=== PATIENT | female | born 1995 | race Caucasian/White ===

== ENCOUNTER 2022-05-27 12:05 | Observation (INO) | payer OTHER, SELFPAY ==
[2022-05-27] MEDS ORDERED: hydrALAZINE 20 MG/ML VIAL SLOW IVP PRN (13:16)
[2022-05-27 15:11] LABS: #Monocytes 0.2 10x3/uL (0.0-1.1); #Neutrophils 3.2 10x3/uL (1.5-8.4); %Basophils 0.2 % (0.0-2.0); %Eosinophils 0.2 % (0.0-6.0); %Lymphocytes 24.2 % (18.0-47.0); %Monocytes 3.4 % (0.0-10.0); %Neutrophils 71.5 % (40.0-75.0); Hemoglobin 6.8 g/dL (12.0-15.5); Mean Corpuscular HGB CONC 28.7 g/dL (32.0-36.0); Mean Corpuscular Hemoglobin 17.3 pg (27.0-33.0); Mean Corpuscular Volume 60.2 fl (81.6-98.3); Mean Platelet Volume 9.3 fl (7.4-10.4); Platelet Count 309 10x3/uL (150-450); RBC Distribution Width 21.2 % (11.5-14.5); Red Blood Cell (RBC) Count 3.94 10x6/uL (3.90-5.03); White Blood Cell (WBC) Count 4.4 10x3/uL (3.5-10.5)
[2022-05-27 15:27] LABS: ALT (SGPT) Less than 6 U/L (8-55); AST (SGOT) 12 U/L (5-34); Albumin 3.4 g/dL (3.5-5.0); Alkaline Phosphatase 133 U/L (40-110); Anion Gap 12 mmol/L (10-20); BUN (Urea Nitrogen) 6 mg/dL (7.0-18.7); Calc. Creatinine Clearance 0 mL/min (70-130); Calcium 8.6 mg/dL (7.8-10.44); Carbon Dioxide 20 mmol/L (22-29); Chloride 106 mmol/L (98-107); Estimated GFR 125; Globulin 3.9 g/dL (2.4-3.5); Glucose 107 mg/dL (70-105); Iron 24 ug/dL (50-170); Magnesium 1.9 mg/dL (1.6-2.6); Potassium 3.1 mmol/L (3.5-5.1); Protein, Total 7.3 g/dL (6.0-8.3); Sodium 135 mmol/L (136-145)
[2022-05-27 15:50] LABS: HBSAg Index 0.15 S/CO (0-0.99); Hep B Surf Ag Non-Reactive S/CO (NonReactive)
[2022-05-27] MEDS ORDERED: Iron, Sodium Ferric Gluconate 125 MG in Sodium Chloride 0.9% 100 ML IVPB SCH (16:00)
[2022-05-27 16:07] LABS: Syphilis Antibody Nonreactive (Nonreactive); Syphilis Antibody Index 0.04 S/CO (<1.00 Non-Reactive)
[2022-05-27 16:40] LABS: HIV (1/2) Antibody/Antigen Non-Reactive (NonReactive); HIV 1/2 INDEX 0.08 S/CO (<1.00)
[2022-05-27 17:02] LABS: Anisocytosis MODERATE=16-30 cells (100X) (0-5/hpf); Elliptocytes SLIGHT = 2-5 cells (100X) (0-1/hpf); Hypochromia SLIGHT = 6-15 cells (100X) (0-5/hpf); Microcytosis MODERATE=15-30 cells (100X) (0-5/hpf)
[2022-05-27 17:03] LABS: Platelet Morphology Comment Appears Adequate
[2022-05-27 17:06] LABS: Reflex for Review?? YES
[2022-05-27] MEDS ORDERED: Potassium Chloride 20 MEQ TAB PO SCH (17:15)
[2022-05-28 05:20] LABS: Hemoglobin 6.8 g/dL (12.0-15.5); Mean Corpuscular HGB CONC 29.4 g/dL (32.0-36.0); Mean Corpuscular Hemoglobin 18.1 pg (27.0-33.0); Mean Corpuscular Volume 61.6 fl (81.6-98.3); Mean Platelet Volume 9.2 fl (7.4-10.4); Platelet Count 270 10x3/uL (150-450); RBC Distribution Width 22.6 % (11.5-14.5); Red Blood Cell (RBC) Count 3.75 10x6/uL (3.90-5.03); White Blood Cell (WBC) Count 4.4 10x3/uL (3.5-10.5)
[2022-05-28 05:27] LABS: Anion Gap 11 mmol/L (10-20); BUN (Urea Nitrogen) 6 mg/dL (7.0-18.7); Calc. Creatinine Clearance 0 mL/min (70-130); Carbon Dioxide 20 mmol/L (22-29); Chloride 108 mmol/L (98-107); Estimated GFR 128; Glucose 85 mg/dL (70-105); Potassium 3.5 mmol/L (3.5-5.1); Sodium 135 mmol/L (136-145)
[2022-05-28 07:54] VITALS: BMI 28.4
[2022-05-28 08:28] LABS: SARS-CoV-2 NAA Rapid Test Not Detected (NotDetected)
[2022-05-28 09:47] LABS: Hep C IgG Ab Non-Reactive (NonReactive)
[2022-05-28] MEDS ORDERED: Acetaminophen 500 MG TAB PO SCH (10:00)
[2022-05-28 14:25] LABS: Hemoglobin 8.1 g/dL (12.0-15.5); Platelet Count 273 10x3/uL (150-450)
[2022-05-28 17:55] VITALS: BP 111/58; TEMP 98.2
== END 2022-05-28 17:43 | disposition home health service (06) ==
LOC: CSHLD/OP 12:05 → CSHLD 17:16 → INTOOBSV 17:16 → UNDOADMIN 22:59 → CSHLD 22:59 → CSHANTE 05-28 12:16 → UNDODISIN 05-28 17:43
PROVIDERS: ADMIT Obstetrics & Gynecology; ATTEND Obstetrics & Gynecology
DX: O30.043 Twin pregnancy, dichorionic/diamniotic, third trimester (principal); O99.013 Anemia complicating pregnancy, third trimester; D50.9 Iron deficiency anemia, unspecified; O99.283 Endocrine, nutritional and metabolic diseases complicating pregnancy, third trimester; E87.1 Hypo-osmolality and hyponatremia; E87.6 Hypokalemia; Z3A.29 29 weeks gestation of pregnancy
CPT/HCPCS: 36415; 36430; 76805; 76819; 80048; 80053; 82728; 83540; 83735; 85025; 85027; 85046; 85060; 86762; 86780; 86803; 86850; 86900; 86901; 87340; 87389; 99285; J2916; J3490; P9016; U0002

== ENCOUNTER 2022-05-31 12:01 | Day surgery (SDC) | payer SELFPAY ==
[2022-06-03 11:20] VITALS: BMI 27.8
== END 2022-05-31 16:05 | disposition home or self-care (01) ==
LOC: CSHLD/OP 12:01
PROVIDERS: ATTEND Student in an Organized Health Care Education/Training Program
DX: O36.8130 Decreased fetal movements, third trimester, not applicable or unspecified (principal); Z3A.30 30 weeks gestation of pregnancy; O99.013 Anemia complicating pregnancy, third trimester; D50.9 Iron deficiency anemia, unspecified; Z79.899 Other long term (current) drug therapy

== ENCOUNTER → 2022-06-14 | Day surgery (SDC) | payer SELFPAY ==
[~2022-06-14] MED LIST: Acetaminophen 500 MG TAB ONE; Acetaminophen 500 MG TAB PO SCH; Iron Sucrose Complex 500 MG in Sodium Chloride 0.9% 250 ML 250 ML IVPB SCH
== END ==
LOC: CSHSDC/OP 09:46
PROVIDERS: ATTEND Nurse Practitioner Family
DX: O99.019 Anemia complicating pregnancy, unspecified trimester (principal); D64.9 Anemia, unspecified; Z3A.00 Weeks of gestation of pregnancy not specified
CPT/HCPCS: J1756; J7050

== ENCOUNTER 2022-07-25 05:31 | Inpatient (IN) | payer MEDICAID, SELFPAY ==
[2022-07-24 12:34] LABS: #Monocytes 0.2 10x3/uL (0.0-1.1); #Neutrophils 2.5 10x3/uL (1.5-8.4); %Basophils 0.3 % (0.0-2.0); %Eosinophils 0.3 % (0.0-6.0); %Lymphocytes 31.6 % (18.0-47.0); %Monocytes 5.6 % (0.0-10.0); %Neutrophils 61.9 % (40.0-75.0); Hemoglobin 9.8 g/dL (12.0-15.5); Mean Corpuscular HGB CONC 30.8 g/dL (32.0-36.0); Mean Corpuscular Hemoglobin 21.4 pg (27.0-33.0); Mean Corpuscular Volume 69.6 fl (81.6-98.3); Mean Platelet Volume 10.3 fl (7.4-10.4); Platelet Count 204 10x3/uL (150-450); RBC Distribution Width 22.3 % (11.5-14.5); Red Blood Cell (RBC) Count 4.57 10x6/uL (3.90-5.03)
[2022-07-24 12:47] LABS: SARS-CoV-2 NAA Rapid Test Not Detected (NotDetected)
[2022-07-24 12:50] LABS: Microcytosis MODERATE=15-30 cells (100X) (0-5/hpf); Syphilis Antibody Nonreactive (Nonreactive); Syphilis Antibody Index 0.04 S/CO (<1.00 Non-Reactive)
[2022-07-24 12:51] LABS: HBSAg Index 0.15 S/CO (0-0.99); Hep B Surf Ag Non-Reactive S/CO (NonReactive); Hypochromia SLIGHT = 6-15 cells (100X) (0-5/hpf)
[2022-07-24 12:55] LABS: Anisocytosis MODERATE=16-30 cells (100X) (0-5/hpf); Ovalocytes SLIGHT = 2-5 cells (100X) (0-1/hpf)
[2022-07-24 12:56] LABS: Large Platelets SLIGHT
[2022-07-25] MEDS ORDERED: Promethazine HCl 25 MG/ML VIAL IM PRN ×2 (06:12→08:55)
[2022-07-25] MEDS ORDERED: Bicitra 30 ML UDCUP PO PRN (06:12)
[2022-07-25] MEDS ORDERED: hydrALAZINE 20 MG/ML VIAL SLOW IVP PRN ×2 (06:12→10:48)
[2022-07-25] MEDS ORDERED: Ondansetron PF 4 MG/2 ML Vial IVP PRN ×2 (06:12→08:55)
[2022-07-25] MEDS ORDERED: Famotidine/PF 20 mg/2ml Vial SLOW IVP PRN (06:12)
[2022-07-25] MEDS ORDERED: CEFAZOLIN 2 GM in Sodium Chloride 0.9% 100 ML IVPB SCH (06:15)
[2022-07-25] MEDS ORDERED: Carboprost 250 MCG/ML AMP IM PRN ×2 (06:19→06:28)
[2022-07-25] MEDS ORDERED: Methylergonovine 0.2 MG/ML VIAL IM PRN ×3 (06:19→10:48)
[2022-07-25] MEDS ORDERED: Misoprostol 200 MCG TAB PR PRN ×2 (06:21→10:48)
[2022-07-25] MEDS ORDERED: Tranexamic Acid 1,000 MG/10 ML VIAL ONE ×3 (07:04→10:47)
[2022-07-25] MEDS ORDERED: Ketorolac Tromethamine 30 MG/ML VIAL ONE (07:05)
[2022-07-25] MEDS ORDERED: Ondansetron PF 4 MG/2 ML Vial ONE (07:05)
[2022-07-25] MEDS ORDERED: Glycopyrrolate 0.2 MG/ML 5 ML SYRINGE ONE (07:05)
[2022-07-25] MEDS ORDERED: ePHEDrine Sulfate 50 MG/10 ML VIAL ONE (07:05)
[2022-07-25] MEDS ORDERED: Morphine PF 10 MG/10 ML VIAL ONE (07:05)
[2022-07-25] MEDS ORDERED: Phenylephrine 40 MG/NS 250 ML 250 ML ONE (07:05)
[2022-07-25] MEDS ORDERED: Oxytocin 10 UNITS/ML VIAL ONE (07:05)
[2022-07-25] MEDS ORDERED: Dexamethasone 4 mg/ml Vial ONE (07:05)
[2022-07-25] MEDS ORDERED: PHENYLEPHRINE-NS 100 MCG/ML 10 ML SYRINGE ONE (07:05)
[2022-07-25] MEDS ORDERED: Midazolam HCl 2 mg/2 ml Vial ONE (08:08)
[2022-07-25] MEDS ORDERED: Promethazine HCl 25 MG SUPP PR PRN (08:55)
[2022-07-25] MEDS ORDERED: Fentanyl 100 MCG/2 ML VIAL SLOW IVP PRN (08:55)
[2022-07-25] MEDS ORDERED: Naloxone HCl 0.4 mg/ml Vial IVP PRN ×2 (08:55)
[2022-07-25] MEDS ORDERED: Naloxone HCl 0.4 mg/ml Vial IV PRN (08:55)
[2022-07-25] MEDS ORDERED: Meperidine HCl/PF 25 MG/ML VIAL SLOW IVP PRN (08:55)
[2022-07-25] MEDS ORDERED: Moisturizing Cream (Eucerin) 113 GM JAR TOP PRN (08:55)
[2022-07-25] MEDS ORDERED: diphenhydrAMINE 50 MG/ML VIAL IVP PRN (08:55)
[2022-07-25] MEDS ORDERED: Ondansetron HCl/PF 4 MG/2 ML Vial IVP PRN (08:55)
[2022-07-25] MEDS ORDERED: Ketorolac Tromethamine 30 MG/ML VIAL IVP SCH (09:00)
[2022-07-25] MEDS ORDERED: Communication Order-Pharmacy FS SCH (09:00)
[2022-07-25] MEDS ORDERED: Bisacodyl 10 MG SUPP PR PRN (10:48)
[2022-07-25] MEDS ORDERED: Acetaminophen 325 MG TAB PO PRN (10:48)
[2022-07-25] MEDS ORDERED: Lanolin Ointment 7 GM TUBE TOP PRN (10:48)
[2022-07-25] MEDS ORDERED: Misoprostol 200 MCG TAB ONE (10:50)
[2022-07-25] MEDS ORDERED: Meperidine HCl/PF 25 MG/ML VIAL ONE (11:06)
[2022-07-25] MEDS ORDERED: Ferrous Sulfate 325 MG TAB PO SCH (11:30)
[2022-07-25] MEDS ORDERED: Prenatal Vitamin 1 TAB PO SCH (11:30)
[2022-07-25] MEDS ORDERED: Docusate 100 MG CAP PO SCH (11:30)
[2022-07-25] MEDS: Ketorolac Tromethamine 30 MG/ML VIAL IVP PRN ×2 (17:24→23:27)
[2022-07-25] MEDS: Ferrous Sulfate 325 MG TAB PO SCH (20:29)
[2022-07-25] MEDS: Docusate 100 MG CAP PO SCH (20:29)
[2022-07-25] MEDS: Simethicone Chewable 80 MG TAB PO PRN (23:27)
[2022-07-26] MEDS: Ketorolac Tromethamine 30 MG/ML VIAL IVP PRN (05:48)
[2022-07-26 05:54] LABS: Hemoglobin 6.8 g/dL (12.0-15.5); Mean Corpuscular HGB CONC 31.1 g/dL (32.0-36.0); Mean Corpuscular Hemoglobin 21.8 pg (27.0-33.0); Mean Corpuscular Volume 70.2 fl (81.6-98.3); Mean Platelet Volume 10.1 fl (7.4-10.4); Platelet Count 155 10x3/uL (150-450); RBC Distribution Width 21.3 % (11.5-14.5); Red Blood Cell (RBC) Count 3.12 10x6/uL (3.90-5.03); White Blood Cell (WBC) Count 6.5 10x3/uL (3.5-10.5)
[2022-07-26] MEDS: Prenatal Vitamin 1 TAB PO SCH (08:48)
[2022-07-26] MEDS: Docusate 100 MG CAP PO SCH ×2 (08:48→22:32)
[2022-07-26] MEDS: Ferrous Sulfate 325 MG TAB PO SCH ×2 (08:48→22:31)
[2022-07-26] MEDS ORDERED: Boostrix 0.5 ML (Tdap) VIAL (>/=7 yrs of age) IM ONE (10:48)
[2022-07-26] MEDS: HYDROcodone/Acetaminophen 5/325 mg Tablet PO PRN (11:13)
[2022-07-26] MEDS ORDERED: HYDROcodone/Acetaminophen 5/325 mg Tablet PO PRN (13:51)
[2022-07-26] MEDS: Ibuprofen 800 MG TAB PO SCH ×2 (14:24→22:32)
[2022-07-26] MEDS: Simethicone Chewable 80 MG TAB PO PRN (16:10)
[2022-07-26] MEDS ORDERED: Ibuprofen 800 MG TAB PO SCH (17:00)
[2022-07-27] MEDS: Ibuprofen 800 MG TAB PO SCH ×2 (05:46→13:31)
[2022-07-27] MEDS: Docusate 100 MG CAP PO SCH (08:10)
[2022-07-27] MEDS: Ferrous Sulfate 325 MG TAB PO SCH (08:10)
[2022-07-27] MEDS: Prenatal Vitamin 1 TAB PO SCH (08:11)
[2022-07-27] MEDS: HYDROcodone/Acetaminophen 5/325 mg Tablet PO PRN ×2 (08:16→13:32)
[2022-07-27 12:56] VITALS: BP 126/81; TEMP 97.8
== END 2022-07-27 13:50 | disposition home or self-care (01) | DRG 787 ==
LOC: CSHLD 05:31 → CSHPED 11:53
PROVIDERS: ADMIT Obstetrics & Gynecology; ATTEND Obstetrics & Gynecology
PROC: 10D00Z1 Extraction of Products of Conception, Low, Open Approach (ICD-10-PCS; principal; 2022-07-25)
PROC: 30233N1 Transfusion of Nonautologous Red Blood Cells into Peripheral Vein, Percutaneous Approach (ICD-10-PCS; 2022-07-26)
DX: O30.043 Twin pregnancy, dichorionic/diamniotic, third trimester (principal); D62 Acute posthemorrhagic anemia; O72.1 Other immediate postpartum hemorrhage; Z3A.38 38 weeks gestation of pregnancy; Z37.2 Twins, both liveborn; O99.02 Anemia complicating childbirth; Z79.899 Other long term (current) drug therapy; O99.824 Streptococcus B carrier state complicating childbirth; M25.519 Pain in unspecified shoulder; R10.9 Unspecified abdominal pain; O99.893 Other specified diseases and conditions complicating puerperium
CPT/HCPCS: 36415; 36430; 51702; 85025; 85027; 86780; 86850; 86900; 86901; 87340; 88307; J1100; J1885; J2175; J2250; J2274; J2405; J2590; J3490; P9016; S0028; U0002